=== PATIENT | female | born 1985 | race Caucasian/White ===

== ENCOUNTER 2016-10-08 10:05 | Emergency (ER) ==
[2016-10-08 10:17] VITALS: BP 117/64
[2016-10-08] MEDS ORDERED: CLINDAMYCIN IM ONE (10:33)
--- NOTE | 2016-10-08 10:34 | PROVIDER DOCUMENTATION ---
HPI-Rash/Wound/ReCheck - General Source: patient - History of Present Illness-Dermatology Location: reports: generalized Quality: reports: painful Severity: reports: mild Onset/Duration: reports: gradual Timing: reports: still present, intermittent Context/Associated Symptoms: reports: denies symptoms Identifiable cause?: No Exposure: reports: unknown cause Locality of Occurance: Home Similar Symptoms Previously?: Yes Recently seen or treated by another doctor?: No <Chetna Jimenez - Last Filed: 10/08/16 10:29> <Clare Mcallister - Last Filed: 10/08/16 10:52> - General Chief Complaint: Abscess Stated Complaint: EYE COMPLAINT/ABSCESS Time Seen by Provider: 10/08/16 10:29 Allergies/Adverse Reactions: Allergies Allergy/AdvReac Type Severity Reaction Status Date / Time No Known Allergies Allergy Verified 07/11/15 10:19 Home Medications: Home Medication List Medication Instructions Recorded Confirmed Last Taken Type Paroxetine [Paxil] 40 mg PO DAILY #0 tablet 07/01/13 07/11/15 06/26/15 Rx Methadone HCl 100 mg PO DAILY 11/08/14 07/11/15 07/11/15 History Temazepam [Restoril] 15 mg PO QHS #20 capsule 04/18/15 07/11/15 06/26/15 Rx Paroxetine HCl [Paxil] 40 mg PO DAILY #20 tablet 07/11/15 Unknown Rx Temazepam [Restoril] 15 mg PO QHS #20 capsule 07/11/15 Unknown Rx Sertraline [Zoloft] 50 mg PO QHS #21 tablet 11/07/15 Unknown Rx Temazepam 15 mg PO HS #14 capsule 11/07/15 Unknown Rx Diclofenac Na D.r. [Voltaren] 50 mg PO BID #20 tab 01/25/16 Unknown Rx Sulfamethoxazole/Tmp D.s. [Septra 1 each PO BID #30 tablet 01/25/16 Unknown Rx Ds] Temazepam [Restoril] 15 mg PO QHS #30 capsule 01/25/16 Unknown Rx Ibuprofen [Motrin] 800 mg PO Q8H PRN PRN #30 tablet 05/14/16 Unknown Rx Methadone HCl 100 mg 05/14/16 05/14/16 History Sulfamethoxazole/Trimethoprim 1 each PO BID #30 tablet 05/14/16 Unknown Rx [Bactrim Ds Tablet] Temazepam [Restoril] 15 mg PO QHS #30 capsule 05/14/16 Unknown Rx Clindamycin [Cleocin] 300 mg PO TID #30 capsule 10/08/16 Unknown Rx Temazepam 15 mg PO HS #5 capsule 10/08/16 Unknown Rx - History of Present Illness-Dermatology Nature of Presenting Problem: Pt is 31 y/o F presents to the ED with multiple abscess sites. Pt states the multiple abscesses are from years of drug abuse. Pt denies F. Pt denies N/V/D. (Chetna Jimenez) Review of Systems - Adult - REVIEW OF SYSTEMS - ADULT Constitutional: denies: chills, fever Eyes: denies: blurred vision, double vision Ears, Nose, Mouth & Throat: denies: ear pain, nose pain, throat pain Cardiovascular: denies: chest pain, heart murmur, irregular heart rate, orthopnea Respiratory: denies: cough, shortness of breath, wheezing Gastrointestinal: denies: abdominal pain, diarrhea, nausea, vomiting Genitourinary: denies: dysuria, hematuria Musculoskeletal: denies: bone pain, joint pain, neck pain Integumentary: reports: other (multiple abscess sites). denies: hives, itching Neurological: denies: dizziness/vertigo, headache/migraines Psychiatric: reports: no symptoms reported Endocrine: reports: no symptoms reported Hematologic/Lymphatic: reports: no symptoms reported Allergic/Immunologic: reports: no symptoms reported All Other Systems: Reviewed and Negative <Chetna Jimenez - Last Filed: 10/08/16 10:29> Past History - Adult - PAST MEDICAL HISTORY-ADULT Review of Records: reports: Nursing Assessment Review, Medications Reviewed, Social history reviewed & non-contributory. Major Childhood Illnesses: reports: denies history Cardiovascular: reports: denies history Respiratory: reports: denies history Gastrointestinal: reports: denies history Obstetrical/Gynecological: reports: denies history Genitourinary: reports: denies history Musculoskeletal: reports: denies history Neurological: reports: denies history Psychiatric: reports: anxiety, depression Endocrine/Immune: reports: RA Other Conditions: reports: MRSA, other (vasculitis disease, multiple skin abscesses) - PRIOR SURGERIES/PROCEDURES Surgical/Procedure History: reports: orthopedic (extremity) - IMMUNIZATION STATUS Childhood Immunizations: See Nurse Assessment Flu Vaccine: See Nurse Assessment - FAMILY HISTORY Family History: reviewed, not pertinent - SOCIAL HISTORY Smoking: cigarettes, greater than 1 pack/day Provider spent 3-5 mins advising pt. on dangers of tobacco.: Discussed manners to quit use, and f/u contacts for add'l counseling. Substance Use: none presently/history of abuse (history of abuse ), cocaine Alcohol Use Frequency: sober (former use) Living Situation: family <Chetna Jimenez - Last Filed: 10/08/16 10:29> Physical Exam-General - PHYSICAL EXAM-ADULT Initial Vital Signs Reviewed: Yes - CONSTITUTIONAL General Appearance: appears well, alert, no apparent distress - EYES Eyes: PERRL/EOMI, pink conjunctivae - HEAD, EARS, NOSE, MOUTH & THROAT HENMT: normocephalic/atraumatic, moist mucous membranes, normal ENT inspection - NECK Neck: non-tender, full range of motion - RESPIRATORY Respiratory: lungs clear, normal breath sounds - CARDIOVASCULAR Cardiovascular: normal peripheral pulses, regular rate, rhythm - GASTROINTESTINAL (ABDOMEN) Abdominal Exam: non tender, soft - MUSCULOSKELETAL Extremity: normal range of motion, normal capillary refill, deformity (Right middle finger) - SKIN Integumentary: warm/dry, erythema (abscess noted to right inner groin w/o discharge), tenderness (raised area noted tp right middle finger w/o erythema/ discharge; raised area noted to right lateral foot w/o erytha/discharge) - PSYCHIATRIC Psych/Mental Status: normal mood/affect, oriented x 3 <Clare Mcallister - Last Filed: 10/08/16 10:52> Progress <Chetna Jimenez - Last Filed: 10/08/16 10:29> <Clare Mcallister - Last Filed: 10/08/16 10:52> - PLAN OF CARE/RESULTS Progress/Plan/Lab Results: Orders Category Date Time Status Clindamycin Med 10/08/16 10:33 Once 600 mg IM NOW ONE Vital Signs - 24 hr 10/08/16 10:15 Temperature 97.1 F L Pulse Rate 88 Respiratory 18 Rate Blood Pressure 117/64 O2 Sat by Pulse 99 Oximetry (Chetna Jimenez) Departure <Chetna Jimenez - Last Filed: 10/08/16 10:29> - Departure Time of Disposition Order: 10:35 Certified Medical Emergency: Emergent <Clare Mcallister - Last Filed: 10/08/16 10:52> - Departure DIAGNOSIS: Abscess of groin, right, Deformity of finger of right hand Disposition: HOME 01 Condition: Stable Additional Instructions: ED Follow Up Instructions: You have been treated by a care provider in the Emergency Department. These instructions are being provided to you so you can have an understanding of how to care for yourself upon discharge. Upon discharge from the Emergency Department, you are responsible for making arrangements for follow-up care by a physician of your choice. Take all prescribed medications as directed. Return to the Emergency Department immediately for any new or worsening symptoms. You may call the Physician Referral phone number at [phone] to obtain a list of Physicians who are taking new patients. Prescriptions: Clindamycin [Cleocin] 300 mg PO TID #30 capsule Temazepam 15 mg PO HS #5 capsule Referrals: None,PCP [Primary Care Provider] - Attestation - Scribe Verification/Attestation Scribe:: Chetna Jimenez Acting as Scribe for:: Clare Mcallister Scribe documention review:: This chart was documented by a scribe and accurately reflects the service the provider performed and the decisions made by the provider. <Chetna Jimenez - Last Filed: 10/08/16 10:29> - Physician/ LARRY Attestation Patient care was provided by Advanced Practice Provider:: Yes Advanced Practice Provider:: Clare Mcallister Advanced Practice Provider documentation review:: The Mid-level provider documentation, treatment plan and medical decision making was reviewed by the physician who agrees with all treatment and medical decision making by the MLP. <Clare Mcallister - Last Filed: 10/08/16 10:52> Physician Attestation
== END 2016-10-08 11:21 | disposition home or self-care (01) ==
LOC: P.ED 10:05
DX: L02.214 Cutaneous abscess of groin (principal); M20.001 Unspecified deformity of right finger(s); R10.31 Right lower quadrant pain; M06.9 Rheumatoid arthritis, unspecified; F41.9 Anxiety disorder, unspecified; F32.9 Major depressive disorder, single episode, unspecified; F17.210 Nicotine dependence, cigarettes, uncomplicated; Z79.899 Other long term (current) drug therapy; Z71.6 Tobacco abuse counseling; Z86.14 Personal history of Methicillin resistant Staphylococcus aureus infection
CPT/HCPCS: 96372; S0077